=== PATIENT | female | born 1990 | race Caucasian/White ===

== ENCOUNTER 2019-01-08 21:16 | Emergency (ER) | payer MEDICAID, OTHER ==
[~2019-01-08] VITALS: Ht 162.6 cm; Wt 54.4 kg
[2019-01-08] MEDS ORDERED: CEPHALEXIN 500MG CAPSULE (21:42)
[2019-01-08] MEDS ORDERED: ONDANSETRON 4 MG/2 ML VIAL IM ONE (22:30)
[2019-01-08] MEDS ORDERED: HYDROMORPHONE 1 MG/1 ML DISP.SYRIN IM ONE (22:30)
[2019-01-08] MEDS ORDERED: LIDOCAINE HCL 2% 20 ML VIAL TP ONE (22:30)
[2019-01-08] MEDS ORDERED: HYDROMORPHONE 2 MG/1 ML DISP.SYRIN ONE (22:32)
[2019-01-08] MEDS ORDERED: ONDANSETRON 4 MG/2 ML VIAL ONE (22:36)
--- NOTE | 2019-01-08 23:15 | NUR ---
DR RAWLS INTO DO I/D ON RIGHT THIGH ABSCESS
--- NOTE | 2019-01-08 23:20 | NUR ---
DRESSING PLACED ON RIGHT THIGH
--- NOTE | 2019-01-08 23:28 | NUR ---
Patient discharged to home in stable conditon. Written and verbal after care instructions given. Patient verbalizes understanding of instructions. WALKED OUT OF ER WITH NO DISTRESS NOTED
[2019-01-08 23:29] VITALS: BP 120/77
--- NOTE | 2019-01-08 23:30 | NUR ---
PATIENT STATES HAS ANTIOBITC RX FROM URGENT CARE. DR RAWLS INSTRUCTED HER TO CONTINUE RX. PATIENT BOYFRIEND WILL TAKE PATIENT HOME
== END 2019-01-08 23:29 | disposition home or self-care (01) ==
LOC: ER 21:16
DX: L02.415 Cutaneous abscess of right lower limb (principal); Z79.2 Long term (current) use of antibiotics
CPT/HCPCS: 10060; 96372 ×2; 99283; J1170; J2405; A4663

== ENCOUNTER 2019-01-10 22:40 | Emergency (ER) | payer OTHER ==
[~2019-01-10] VITALS: Ht 162.6 cm; Wt 54.4 kg
[~2019-01-10 22:40] MED LIST: CEPHALEXIN 500MG CAPSULE
--- NOTE | 2019-01-10 23:30 | NUR ---
Dr. Ramirez at bedside for MSE.
[2019-01-10] MEDS ORDERED: SULFAMETH/TRIMETH 800/160 MG TABLET ONE (23:39)
[2019-01-10] MEDS ORDERED: SULFAMETH/TRIMETH 800/160 MG TABLET PO ONE (23:45)
--- NOTE | 2019-01-10 23:55 | NUR ---
Patient discharged to home in stable conditon. Written and verbal after care instructions given. Patient verbalizes understanding of instructions. Pt ambulated out of ER with steady gait, no acute signs of distress, VSS, all belongings taken.
[2019-01-10 23:56] VITALS: BP 110/78
== END 2019-01-10 23:57 | disposition home or self-care (01) ==
LOC: ER 22:42
DX: Z48.01 Encounter for change or removal of surgical wound dressing (principal); L02.415 Cutaneous abscess of right lower limb; Z79.899 Other long term (current) drug therapy
CPT/HCPCS: A4663

== ENCOUNTER 2019-01-20 21:35 | Emergency (ER) | payer OTHER ==
[~2019-01-20] VITALS: Ht 162.6 cm; Wt 54.4 kg
--- NOTE | 2019-01-20 23:14 | NUR ---
Patient discharged to home in stable conditon. Written and verbal after care instructions given. Patient verbalizes understanding of instructions. Pt ambulated out of ER in stable gait. No acute distress noted. Vital signs stable.
[2019-01-20 23:15] VITALS: BP 109/68
== END 2019-01-20 23:15 | disposition home or self-care (01) ==
LOC: ER 21:36
DX: L02.415 Cutaneous abscess of right lower limb (principal); Z79.899 Other long term (current) drug therapy
CPT/HCPCS: A4663

== ENCOUNTER 2019-03-21 22:34 | Emergency (ER) | payer OTHER ==
[~2019-03-21] VITALS: Ht 162.6 cm; Wt 52.2 kg
[2019-03-21] MEDS ORDERED: SWABABLE VALVE TRANSFER SET EA MC ONE (23:40)
[2019-03-21] MEDS ORDERED: IOHEXOL 350 100 ML INFUS..BTL ONE (23:40)
[2019-03-21] MEDS ORDERED: IV NORMAL SALINE 250 ML BAG ONE (23:40)
[2019-03-21] MEDS: VANCOMYCIN IV 1,000 MG in IV DEXTROSE 5% 250 ML IV ONE (23:45)
[2019-03-21] MEDS ORDERED: IV NORMAL SALINE 1000 ML BAG IV ONE (23:45)
[2019-03-22 00:07] LABS: BASOPHILS % (AUTO) 0.5 % (0.0-2.0); EOSINOPHILS # (AUTO) 0.2 K/uL (0.0-0.7); EOSINOPHILS % (AUTO) 3.2 % (0.0-7.0); HEMATOCRIT 33.1 % (31.2-41.9); HEMOGLOBIN 11.3 g/dL (10.9-14.3); LYMPHOCYTES # (AUTO) 2.8 K/uL (20.0-40.0); LYMPHOCYTES % (AUTO) 41.1 % (20.5-51.5); MEAN CORPUSCULAR HEMOGLOBIN 30.3 uug (24.7-32.8); MEAN CORPUSCULAR HGB CONC 34 g/dL (32.3-35.6); MEAN CORPUSCULAR VOLUME 89.2 fL (75.5-95.3); MONOCYTES # (AUTO) 0.4 K/uL (2.0-10.0); MONOCYTES % (AUTO) 6.1 % (0.0-11.0); NEUTROPHILS # (AUTO) 3.4 K/uL (1.8-8.9); NEUTROPHILS % (AUTO) 49.1 % (38.5-71.5); PLATELET COUNT (AUTO) 429 K/uL (179-408); RED BLOOD CELL COUNT(AUTO) 3.71 MIL/uL (3.63-4.92); WHITE BLOOD COUNT (AUTO) 6.8 K/uL (3.8-11.8)
[2019-03-22 00:12] LABS: CARBON DIOXIDE 27 mmol/L (21-32); CHLORIDE 102 mmol/L (98-107); CREATININE 0.8 mg/dL (0.6-1.3); GLUCOSE 115 mg/dL (74-106); UREA NITROGEN, BLOOD 11 mg/dL (7-18)
[2019-03-22 00:15] LABS: *BILIRUBIN,URIN NEGATIVE (NEGATIVE); *BLOOD, URINE NEGATIVE (NEGATIVE); *CLARITY,URINE CLEAR (CLEAR); *COLOR,URINE YELLOW (YELLOW); *KETONES,URINE NEGATIVE (NEGATIVE); *UROBILINOGEN,URINE 0.2 E.U./dl (NORMAL); LEUKOCYTE ESTERASE ,URINE NEGATIVE (NEGATIVE); NITRITE, URINE NEGATIVE (NEGATIVE); UGLUCOSE NEGATIVE (NEGATIVE)
[2019-03-22] MEDS ORDERED: VANCOMYCIN IV 200 ML ONE (00:15)
[2019-03-22 00:18] LABS: *URINE HCG, QUAL NEGATIVE (NEGATIVE); ALANINE AMINOTRANSFERASE 11 U/L (14-59); ALKALINE PHOSPHATASE 80 U/L (50-136); ASPARTATE AMINOTRANSFERASE < 5 U/L (15-37); BILIRUBIN,DIRECT < 0.1 mg/dL (0.0-0.2); BILIRUBIN,TOTAL 0.2 mg/dL (0.2-1.0); TOTAL PROTEIN, SERUM 8.6 g/dL (6.4-8.2)
[2019-03-22] MEDS: VANCOMYCIN IV 1,000 MG in IV DEXTROSE 5% 250 ML IV ONE (00:28)
[2019-03-22 00:32] LABS: BACTERIA,URINE NONE SEEN /HPF (NONE SEEN); MUCUS,URINE MODERATE /LPF (0-FEW); RBC,URINE 0-3 /HPF (0-3); SQUAMOUS EPITHELIAL CELL,UR MODERATE /HPF (NONE SEEN); WBC,URINE 0-3 /HPF (0-3)
[2019-03-22] MEDS ORDERED: POTASSIUM CHLORIDE 20 MEQ TAB.PRT.SR PO ONE (00:45)
--- NOTE | 2019-03-22 01:00 | NUR ---
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
--- NOTE | 2019-03-22 01:30 | NUR ---
Wet to dry dressing provided to right hip wound. Pt instructed on how to do wound care. Pt verbalized understanding of instructions.
[2019-03-22] MEDS ORDERED: POTASSIUM CHLORIDE 20 MEQ TAB.PRT.SR ONE (01:35)
--- NOTE | 2019-03-22 02:00 | NUR ---
Pt states she has no one to take care of son and will follow up with care when she can. Pt planning on going AMA. ER aware.
--- NOTE | 2019-03-22 03:45 | NUR ---
Patient does not wish to proceed with medical care recommended by Dr. Grande. Patient given information related to possible complications, up to and including , which could occur as a result of leaving the hospital at this time. Patient verbalizes understanding of risks involved due to leaving against medical advice. Patient has signed AMA form.
[2019-03-22 03:52] VITALS: BP 119/73
== END 2019-03-22 03:40 | disposition left against medical advice (07) ==
LOC: ER 22:35
DX: L02.415 Cutaneous abscess of right lower limb (principal); L97.819 Non-pressure chronic ulcer of other part of right lower leg with unspecified severity; F11.10 Opioid abuse, uncomplicated; F15.10 Other stimulant abuse, uncomplicated; F32.9 Major depressive disorder, single episode, unspecified; F41.9 Anxiety disorder, unspecified; F20.9 Schizophrenia, unspecified; F17.210 Nicotine dependence, cigarettes, uncomplicated; Z79.899 Other long term (current) drug therapy
CPT/HCPCS: 36415; 73701; 80048; 80076; 81000; 81001; 83605; 84703; 85025; 85730 ×2; 87040 ×2; 87070; 87086; 96365; 96366; 99284; J3370; A4663; J7030; J7050; Q9967